=== PATIENT | male | born 1955 | race Caucasian/White ===

== ENCOUNTER 2016-05-20 13:30 | Emergency (ER) | payer BC ==
[2016-05-20] MEDS ORDERED: EPINEPHrine 1:10,000 1 MG/10 ML Syringe IV ONE (13:51)
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
== END 2016-05-20 13:53 | disposition expired ==
LOC: EDBD → EDSEX → DL.ED 13:30
DX: I46.9 Cardiac arrest, cause unspecified (principal)
CPT/HCPCS: 31500; 92950; 96374; 99285; J0171